=== PATIENT | female | born 1965 | race Caucasian/White ===

== ENCOUNTER 2020-07-22 06:36 | Emergency (ER) | payer OTHER ==
[~2020-07-22 06:36] MED LIST: BACTROBAN NASAL1 GM; KEFLEX250 MG PO; NAPROXEN500 MG PO; NORCO 5-325 TA1 EACH PO
[2020-07-22 07:08] LABS: BASOPHIL 0.1 % (0-2); EOSINOPHIL 0.4 % (0-5); HCT 37.7 % (37.0-47.0); HGB 13.1 g/dl (12.5-16.0); LYMPHOCYTE 11.2 % (15-48); MCH 32.1 pg (25.0-31.0); MCHC 34.7 g/dL (32.0-36.0); MCV 92.4 fL (78.0-100.0); MPV 8.7 fL (6.0-9.5); NRBC 0; PLT 232 K/uL (150-400); RBC 4.08 M/uL (4.20-5.40); RDW 12.5 % (11.5-14.0); WBC 6.7 K/uL (4.0-10.5)
[2020-07-22 07:17] LABS: INR 1.05 (0.9-1.2); PTT 33.6 SECONDS (22.2-34.7)
[2020-07-22 07:24] LABS: ALBUMIN 3.9 g/dL (3.4-5.0); BILIRUBIN - TOTAL 0.7 mg/dL (0.2-1.0); BUN/CREAT RATIO (CALC) 18.6 RATIO; CREATININE 0.7 mg/dL (0.51-0.95); GLOBULIN (CALCULATION) 3.5 g/dL; POTASSIUM 3.8 mmol/L (3.5-5.1); TOTAL PROTEIN 7.4 g/dL (6.4-8.2)
[2020-07-22] MEDS ORDERED: VENTOLIN HFA18 GM INH (11:30)
[2020-07-22] MEDS ORDERED: VIBRAMYCIN100 MG PO (11:32)
[2020-07-22] MEDS ORDERED: NAPROXEN500 MG PO (11:41)
[2020-07-22] MEDS ORDERED: ULTRAM50 MG PO (11:41)
== END 2020-07-22 11:57 | disposition home or self-care (01) ==
LOC: FER 06:36
PROVIDERS: Emergency Medicine Emergency Medical Services
DX: R07.89 Other chest pain (principal); R06.02 Shortness of breath; R42 Dizziness and giddiness; R11.0 Nausea; R51.9 Headache, unspecified; T50.B95A Adverse effect of other viral vaccines, initial encounter; E03.9 Hypothyroidism, unspecified; Z79.899 Other long term (current) drug therapy; Z20.822 Contact with and (suspected) exposure to COVID-19
CPT/HCPCS: 36415; 36600; 71045; 71275; 80053; 82803; 83880; 84484; 85025; 85379; 85610; 85730; 93005; J1170; J1885; J2405; Q9967; U0002

== ENCOUNTER 2020-08-06 10:31 | Emergency (ER) | payer OTHER ==
[~2020-08-06 10:31] MED LIST changes: +ULTRAM50 MG PO; +VENTOLIN HFA18 GM INH; +VIBRAMYCIN100 MG PO
[2020-08-06] MEDS ORDERED: NAPROXEN500 MG PO (14:34)
== END 2020-08-06 15:07 | disposition home or self-care (01) ==
LOC: FER 10:31
DX: S09.90XA Unspecified injury of head, initial encounter (principal); S00.83XA Contusion of other part of head, initial encounter; S00.01XA Abrasion of scalp, initial encounter; I10 Essential (primary) hypertension; Z23 Encounter for immunization; Y08.09XA Assault by strike by other specified type of sport equipment, initial encounter
CPT/HCPCS: 70486; 90471; 90715

== ENCOUNTER 2020-08-31 22:21 | Emergency (ER) | payer OTHER ==
[2020-09-01 00:14] LABS: BASOPHIL 0.3 % (0-2); EOSINOPHIL 2.4 % (0-5); HCT 36.2 % (37.0-47.0); HGB 12.6 g/dl (12.5-16.0); LYMPHOCYTE 20.3 % (15-48); MCH 31.9 pg (25.0-31.0); MCHC 34.8 g/dL (32.0-36.0); MCV 91.6 fL (78.0-100.0); MONOCYTE 6.5 % (0-12); NEUTROPHIL 70.2 % (41-80); NRBC 0; PLT 249 K/uL (150-400); RBC 3.95 M/uL (4.20-5.40); RDW 12.5 % (11.5-14.0); WBC 7.6 K/uL (4.0-10.5)
[2020-09-01 00:24] LABS: INR 1.08 (0.9-1.2); PROTHROMBIN TIME 13.3 SECONDS (11.4-13.6); PTT 31.5 SECONDS (22.2-34.7)
[2020-09-01 00:29] LABS: ALBUMIN 3.6 g/dL (3.4-5.0); BILIRUBIN - DIRECT 0.1 mg/dL (0.00-0.20); BILIRUBIN - TOTAL 0.5 mg/dL (0.2-1.0); BUN/CREAT RATIO (CALC) 23.3 RATIO; C-REACTIVE PROTEIN 0.3 mg/dL (<=0.90); CREATININE 0.6 mg/dL (0.51-0.95); GLOBULIN (CALCULATION) 3.8 g/dL; POTASSIUM 3.1 mmol/L (3.5-5.1); TOTAL PROTEIN 7.4 g/dL (6.4-8.2)
[2020-09-01 00:45] LABS: LACTIC ACID 0.8 mmol/L (0.4-1.9)
[2020-09-01 03:54] LABS: BILIRUBIN NEGATIVE (NEGATIVE); BLOOD NEGATIVE Ery/uL (NEGATIVE); CLARITY CLEAR (CLEAR); COLOR YELLOW (YELLOW); GLUCOSE (U) NORMAL (NORMAL); LEUKOCYTES NEGATIVE Leu/uL (NEGATIVE); NITRITE NEGATIVE (NEGATIVE); PROTEIN NEGATIVE (NEGATIVE); SPECIFIC GRAVITY 1.025 (1.001-1.030); UROBILINOGEN 0.2 mg/dL (0.2-1.0); pH 5.5 (5.0-9.0)
== END 2020-09-01 04:40 | disposition other institution (70) ==
LOC: FER 22:21
PROVIDERS: Student in an Organized Health Care Education/Training Program
DX: K43.6 Other and unspecified ventral hernia with obstruction, without gangrene (principal); Z20.822 Contact with and (suspected) exposure to COVID-19
CPT/HCPCS: 36415; 80048; 80076; 81003; 82553; 83605; 83690; 84145; 85025; 85610; 85730; 86140; 93005; J2405; J3010; U0002

== ENCOUNTER 2020-12-08 02:25 | Emergency (ER) | payer OTHER ==
[2020-12-08 03:47] LABS: BASOPHIL 0.4 % (0-2); HCT 34.9 % (37.0-47.0); HGB 11.5 g/dl (12.5-16.0); LYMPHOCYTE 26.6 % (15-48); MCH 29.6 pg (25.0-31.0); MCV 89.9 fL (78.0-100.0); MONOCYTE 8.1 % (0-12); MPV 10.3 fL (6.0-9.5); NEUTROPHIL 57.6 % (41-80); NRBC 0; PLT 357 K/uL (150-400); RBC 3.88 M/uL (4.20-5.40); RDW 13.4 % (11.5-14.0); WBC 7.2 K/uL (4.0-10.5)
[2020-12-08 03:52] LABS: INR 1.11 (0.9-1.2); PROTHROMBIN TIME 13.7 SECONDS (11.8-13.4)
[2020-12-08 03:53] LABS: PTT 34.8 SECONDS (24.4-34.7)
[2020-12-08 04:08] LABS: ALBUMIN 3.5 g/dL (3.4-5.0); BILIRUBIN - TOTAL 0.5 mg/dL (0.2-1.0); BUN/CREAT RATIO (CALC) 22.4 RATIO; CREATININE 0.58 mg/dL (0.51-0.95); GLOBULIN (CALCULATION) 3.4 g/dL; POTASSIUM 2.8 mmol/L (3.5-5.1); TOTAL PROTEIN 6.9 g/dL (6.4-8.2)
[2020-12-08 09:55] LABS: BUN/CREAT RATIO (CALC) 18.2 RATIO; CREATININE 0.55 mg/dL (0.51-0.95); POTASSIUM 3.3 mmol/L (3.5-5.1)
== END 2020-12-08 21:35 | disposition other institution (70) ==
LOC: FER 02:25
PROVIDERS: Emergency Medicine; Internal Medicine
DX: I20.0 Unstable angina (principal); E87.6 Hypokalemia; R94.31 Abnormal electrocardiogram [ECG] [EKG]; E16.2 Hypoglycemia, unspecified; I10 Essential (primary) hypertension; K21.9 Gastro-esophageal reflux disease without esophagitis; E03.9 Hypothyroidism, unspecified
CPT/HCPCS: 36415; 71045; 71275; 80048; 80053; 83735; 84484; 85025; 85379; 85610; 85730; 93005; J1170; J1644; J2270; J2405; J3475; Q9967

== ENCOUNTER → 2021-03-20 | Day surgery (SDC) | payer OTHER ==
[~2021-03-20] VITALS: Ht 168.9 cm; Wt 83.5 kg
[~2021-03-20] MED LIST changes: +DESVENLAFAXINE25 MG PO; +IBUPROFEN800 MG PO; +IRON PO; +LASIX40 MG PO; +LEVOTHYROXINE PO; +LISINOPRIL20 MG PO; +NEURONTIN100 MG PO; +NORVASC5 MG PO; +PRAVACHOL20 MG PO; +TOPIRAMATE50 MG PO; +UROCIT-K10 MEQ PO; +VITAMIN B12 IJ; +VITAMIN D31250 MC1 PO; +WAL-ZYR10 M1 PO
== END | disposition home or self-care (01) ==
LOC: FAS 09:29
DX: K52.9 Noninfective gastroenteritis and colitis, unspecified (principal); R15.9 Full incontinence of feces; K64.8 Other hemorrhoids; I10 Essential (primary) hypertension; E78.00 Pure hypercholesterolemia, unspecified; K21.9 Gastro-esophageal reflux disease without esophagitis; E03.9 Hypothyroidism, unspecified; F41.9 Anxiety disorder, unspecified; E78.5 Hyperlipidemia, unspecified; F32.A Depression, unspecified; G47.30 Sleep apnea, unspecified; Z79.1 Long term (current) use of non-steroidal anti-inflammatories (NSAID); Z79.899 Other long term (current) drug therapy; Z90.710 Acquired absence of both cervix and uterus; Z98.51 Tubal ligation status
CPT/HCPCS: J2704; J7120